=== PATIENT | male | born 1965 | race Caucasian/White ===

== ENCOUNTER 2017-03-19 20:39 | Emergency (ER) | payer MEDICAID ==
--- NOTE | 2017-03-19 21:06 | EDM.PDOC ---
ED HPI GENERAL MEDICAL PROBLEM - General Chief Complaint: General Stated Complaint: EYE INJURY Time Seen by Provider: 03/19/17 20:42 Source of Information: Reports: Patient, Family History Limitations: Reports: No Limitations - History of Present Illness INITIAL COMMENTS - FREE TEXT/NARRATIVE: Patient is a 51 year old man who was deer hunting today and he walked through brush when he was going out to his stand and he thinks he scratched his eye with a stem from one the the brushes. It feels like something is in it and light and having it open makes it feel worse. His pain is at a 10/10 level. His vision is still normal and unchanged. Onset: Today Onset Date: 03/19/17 Onset Time: 06:00 Duration: Hour(s): (14), Constant (Left eye.) Location: Reports: Other (Left eye.) Quality: Reports: Sharp Severity: Severe Improves with: Reports: None Worsens with: Reports: Other (Opening and closing the eyes.) Context: Reports: Other (Gilman limb scratched his eye.) Associated Symptoms: Reports: No Other Symptoms Left Eye Pain Score (Numeric/FACES): 10 - Related Data Allergies Allergy/AdvReac Type Severity Reaction Status Date / Time No Known Allergies Allergy Verified 03/19/17 20:51 Home Meds: Home Meds NK [No Known Home Meds] 03/19/17 [History] ED ROS GENERAL - Review of Systems Review Of Systems: ROS reveals no pertinent complaints other than HPI. ED EXAM, GENERAL - Physical Exam Exam: See Below Exam Limited By: No Limitations General Appearance: Alert, WD/WN, No Apparent Distress Eye Exam: Left Eye: Conjunctival Injection, Foreign Body (No foreign body seen. Upper eyelid everted.), Normal Inspection (He has no foreign body in the left eye but he has a 1 cm corneal abrasion on the lower mid iris of the left eye on fluorescein exam.), Vision Changes (Left eye has a little blurred vision due to watering of eye.), Bilateral Eye: EOMI, Normal Fundi, PERRL Ears: Normal External Exam, Normal Canal, Hearing Grossly Normal, Normal TMs Ear Exam: Bilateral Ear: Auricle Normal, Canal Normal, TM normal Course - Vital Signs Text/Narrative:: Unremarkable ED course. His Left eye was numbed with tetracaine eyedrops and it felt much better and normal. The exam showed the corneal abrasion. We put erythromycin ointment in the left eye that he will put in qid for the next 3 days and we gave him an eye patch. He will see his opthomologist tomorrow or Tuesday if any pain persists. Recheck here if needed. Last Recorded V/S: Last Vital Signs Temp 37.2 C 03/19/17 20:39 Pulse 88 03/19/17 20:39 Resp BP 170/96 H 03/19/17 20:39 Pulse Ox 99 03/19/17 20:39 Departure - Departure Time of Disposition: 21:12 Disposition: Home, Self-Care 01 Condition: Good Clinical Impression: Corneal abrasion, left - Discharge Information Instructions: Corneal Abrasion, [id number] Forms: ED Department Discharge Additional Instructions: USE THE OINTMENT IN YOUR EYE FOR AT LEAST THE NEXT 2 DAYS. IF YOU ARE STILL HAVING GO TO YOUR EYE DOCTOR.
[2017-03-19] MEDS ORDERED: Erythromycin Base 0.5% Ophth Oint 3.5 GM Tube ONE (22:15)
== END 2017-03-19 21:02 | disposition home or self-care (01) ==
LOC: LB.ED 20:39
DX: S05.02XA Injury of conjunctiva and corneal abrasion without foreign body, left eye, initial encounter (principal); X58.XXXA Exposure to other specified factors, initial encounter
CPT/HCPCS: 99283; A9270